=== PATIENT | male | born 1950 | race Caucasian/White ===

== ENCOUNTER → 2018-03-25 | Outpatient (CLI) | payer OTHER ==
[~2018-03-25] MED LIST: FINA5 PO; Zofran Odt4 MG SL
== END | disposition home or self-care (01) ==
LOC: PLD 07:46 → LAB SHORT 07:46
DX: D22.5 Melanocytic nevi of trunk (principal)
CPT/HCPCS: 88305

== ENCOUNTER → 2018-04-08 | Outpatient (CLI) | payer OTHER | END | disposition home or self-care (01) | LOC: PLD 11:29 → LAB SHORT 11:29 | DX: D22.5 Melanocytic nevi of trunk (principal) | CPT/HCPCS: 88305 ==

== ENCOUNTER → 2018-09-16 | Outpatient (CLI) | payer OTHER | END | disposition home or self-care (01) | LOC: LAB SHORT 13:21 → PLD 13:21 | DX: D48.5 Neoplasm of uncertain behavior of skin (principal) | CPT/HCPCS: 88304 ==

== ENCOUNTER 2018-12-21 09:18 | Day surgery (SDC) | payer OTHER ==
[~2018-12-21] VITALS: Ht 177.8 cm; Wt 94.5 kg
[~2018-12-21 09:18] MED LIST changes: +CALCIUM GUMMIE1 EACH PO; +CYAN500 PO; +KRILL OIL500 MG PO; +MULTI-DAY PLUS1 EAC1 PO; +TAMS.4ER PO; +VITAMIN D32000 UNIT PO
== END 2018-12-21 11:15 | disposition home or self-care (01) ==
LOC: ORSCSDS 09:18
PROVIDERS: Surgery
PROC: 0DBH8ZX Excision of Cecum, Via Natural or Artificial Opening Endoscopic, Diagnostic (ICD-10-PCS; principal; 2018-12-21 10:30)
PROC: 0DJ08ZZ Inspection of Upper Intestinal Tract, Via Natural or Artificial Opening Endoscopic (ICD-10-PCS; principal; 2018-12-21 10:30)
DX: D50.9 Iron deficiency anemia, unspecified (principal); D12.0 Benign neoplasm of cecum; Z86.010 Personal history of colon polyps; E78.5 Hyperlipidemia, unspecified; Z79.899 Other long term (current) drug therapy
CPT/HCPCS: 88305; J7120

== ENCOUNTER → 2019-04-06 | Outpatient (CLI) | payer OTHER | END | disposition home or self-care (01) | LOC: LAB SHORT 10:20 → PLD 10:20 | DX: D22.72 Melanocytic nevi of left lower limb, including hip (principal) | CPT/HCPCS: 88305 ==

== ENCOUNTER → 2020-03-08 | Outpatient (CLI) | payer OTHER | END | disposition home or self-care (01) | LOC: PLD 09:12 → LAB SHORT 09:12 | DX: D22.5 Melanocytic nevi of trunk (principal) | CPT/HCPCS: 88305 ==

== ENCOUNTER → 2021-04-10 | Outpatient (CLI) | payer OTHER | LOC: LAB 11:00 → LAB SHORT 11:00 | DX: L57.8 Other skin changes due to chronic exposure to nonionizing radiation (principal) | CPT/HCPCS: 88305 ==

== ENCOUNTER → 2021-10-15 | Outpatient (CLI) | payer OTHER | END | disposition home or self-care (01) | LOC: LAB SHORT 11:13 | DX: L82.1 Other seborrheic keratosis (principal); D48.5 Neoplasm of uncertain behavior of skin | CPT/HCPCS: 88305 ==

== ENCOUNTER 2023-10-28 08:08 | Day surgery (SDC) | payer OTHER ==
[~2023-10-28] VITALS: Ht 177.8 cm; Wt 96.2 kg
[2023-10-28] MEDS ORDERED: Zovirax Cream 5%2 GM (08:40)
[2023-10-28] MEDS ORDERED: KRILL OIL500 MG (08:41)
[2023-10-28] MEDS ORDERED: Vitamin B-12100 MCG (08:42)
[2023-10-28 10:05] VITALS: BP 110/68
== END 2023-10-28 10:06 | disposition home or self-care (01) ==
LOC: ORSCSDS 08:08
PROVIDERS: Surgery
PROC: 0DB98ZX Excision of Duodenum, Via Natural or Artificial Opening Endoscopic, Diagnostic (ICD-10-PCS; principal; 2023-10-28 09:15)
PROC: 0DBH8ZX Excision of Cecum, Via Natural or Artificial Opening Endoscopic, Diagnostic (ICD-10-PCS; principal; 2023-10-28 09:15)
PROC: 0DBN8ZX Excision of Sigmoid Colon, Via Natural or Artificial Opening Endoscopic, Diagnostic (ICD-10-PCS; principal; 2023-10-28 09:15)
PROC: 0DBK8ZX Excision of Ascending Colon, Via Natural or Artificial Opening Endoscopic, Diagnostic (ICD-10-PCS; principal; 2023-10-28 09:15)
PROC: 0DB68ZX Excision of Stomach, Via Natural or Artificial Opening Endoscopic, Diagnostic (ICD-10-PCS; principal; 2023-10-28 09:15)
DX: D50.9 Iron deficiency anemia, unspecified (principal); K29.80 Duodenitis without bleeding; K29.70 Gastritis, unspecified, without bleeding; D12.2 Benign neoplasm of ascending colon; D12.0 Benign neoplasm of cecum; K63.5 Polyp of colon; K64.9 Unspecified hemorrhoids; E78.5 Hyperlipidemia, unspecified; Z79.899 Other long term (current) drug therapy
CPT/HCPCS: 88305; 88341; 88342; 88360; J2704; J7120

== ENCOUNTER → 2023-12-23 | Outpatient (CLI) | payer OTHER ==
[~2023-12-23] MED LIST changes: +KRILL OIL500 MG; +Vitamin B-12100 MCG; +Zovirax Cream 5%2 GM
== END | disposition home or self-care (01) ==
LOC: LAB EV 08:42 → LAB SHORT 08:42
DX: C88.4 Extranodal marginal zone B-cell lymphoma of mucosa-associated lymphoid tissue [MALT-lymphoma] (principal); D47.2 Monoclonal gammopathy
CPT/HCPCS: 87338

== ENCOUNTER → 2024-03-16 | Outpatient (CLI) | payer OTHER ==
[~2024-03-16] MED LIST changes: +PROTANDIM; +ZINC15
== END ==
LOC: LAB 14:40 → LAB SHORT 14:40
DX: L82.1 Other seborrheic keratosis (principal)
CPT/HCPCS: 88305

== ENCOUNTER 2025-02-03 09:18 | Day surgery (SDC) | payer OTHER ==
[~2025-02-03] VITALS: Ht 177.8 cm; Wt 96.8 kg
[~2025-02-03 09:18] MED LIST changes: +Lactated Ringer's 1,000 ML IV ONE; +propofoL 50 ML IV ONE
[2025-02-03] MEDS ORDERED: Lactated Ringer's 1,000 ML IV ONE (10:44)
[2025-02-03 11:45] VITALS: BP 116/78
== END 2025-02-03 11:45 | disposition home or self-care (01) ==
LOC: ORSCSDS 09:18
PROVIDERS: Surgery
PROC: 0DJD8ZZ Inspection of Lower Intestinal Tract, Via Natural or Artificial Opening Endoscopic (ICD-10-PCS; principal; 2025-02-03 10:30)
DX: Z12.11 Encounter for screening for malignant neoplasm of colon (principal); Z86.0100 Personal history of colon polyps, unspecified; N18.9 Chronic kidney disease, unspecified; E78.5 Hyperlipidemia, unspecified; Z79.899 Other long term (current) drug therapy
CPT/HCPCS: J2704; J7120

== ENCOUNTER 2025-03-01 11:11 | Day surgery (SDC) | payer OTHER ==
[~2025-03-01] VITALS: Ht 177.8 cm; Wt 99.3 kg
[~2025-03-01 11:11] MED LIST changes: -propofoL 50 ML IV ONE
[2025-03-01] MEDS ORDERED: FentaNYL Citrate 50 MCG/ML 2 ML Injection ONE (11:19)
[2025-03-01] MEDS ORDERED: propofoL 20 ML IV ONE (11:19)
[2025-03-01] MEDS ORDERED: Sugammadex Sodium 200 MG/2ML SDV (100 MG/ML) ONE ×2 (11:20→13:52)
[2025-03-01] MEDS ORDERED: Rocuronium Bromide 10 MG/ML 5ML Injection IV ONE (11:21)
[2025-03-01] MEDS ORDERED: Dexamethasone Sod Phos 10 MG/ML 1ML VIAL ONE (11:21)
[2025-03-01] MEDS ORDERED: Ondansetron HCl 2 MG / ML 2ML Vial ONE (11:21)
[2025-03-01] MEDS ORDERED: Lactated Ringer's 1,000 ML IV ONE ×2 (12:10→14:01)
[2025-03-01] MEDS ORDERED: EPINEPhrine HCl 1 MG/ML 1ML Amp ONE (12:20)
[2025-03-01] MEDS ORDERED: Midazolam HCl 1MG / ML 2ML Vial ONE (12:43)
--- NOTE | 2025-03-01 12:43 | NUR ---
03/01/25 1243 Batsheva Hannon PT DELAYED GOING BACK DUE TO CONSENT NOT BEING OBTAINED UNTIL 0645.
[2025-03-01] MEDS ORDERED: Ketorolac Tromethamine 30mg Vial ONE (13:08)
[2025-03-01] MEDS ORDERED: ePHEDrine Sulfate 50 MG/ML 1ML Injection ONE (13:20)
[2025-03-01 14:22] VITALS: BP 143/79
== END 2025-03-01 15:11 | disposition home or self-care (01) ==
LOC: ORSCSDS 11:11
PROVIDERS: Otolaryngology
PROC: 0CB Mouth and Throat, Excision (ICD-10-PCS; principal; 2025-03-01 12:30)
PROC: 07B20ZX Excision of Left Neck Lymphatic, Open Approach, Diagnostic (ICD-10-PCS; principal; 2025-03-01 12:30)
DX: C83.01 Small cell B-cell lymphoma, lymph nodes of head, face, and neck (principal); R93.89 Abnormal findings on diagnostic imaging of other specified body structures; N40.0 Benign prostatic hyperplasia without lower urinary tract symptoms; Z79.899 Other long term (current) drug therapy; E66.9 Obesity, unspecified; Z68.31 Body mass index [BMI] 31.0-31.9, adult
CPT/HCPCS: 88184; 88185; 88305; 88341; 88342; J0171; J1100; J1885; J2250; J2405; J2704; J3010; J7120

== ENCOUNTER 2025-07-11 08:10 | Inpatient (IN) | payer OTHER ==
[~2025-07-11] VITALS: Ht 177.8 cm; Wt 94.4 kg
[2025-07-11] VITALS (23 sets, daily range): BP systolic 102–147; BP diastolic 56–103
[~2025-07-11 08:10] MED LIST changes: -KRILL OIL500 MG; -Lactated Ringer's 1,000 ML IV ONE
[2025-07-11] MEDS ORDERED: ASPIR 8181 M1 PO ×2 (08:55)
[2025-07-11 11:25] LABS: BASOPHILS ABSOLUTE AUTO 0.02 K/mm3 (0.00-0.23); BASOPHILS PERCENT AUTO 1 % (0-2); EOSINOPHILS ABSOLUTE AUTO 0.04 K/mm3 (0.00-0.68); EOSINOPHILS PERCENT AUTO 1 % (0-6); Hematocrit 42.1 % (37.0-53.0); Hemoglobin 14.6 g/dL (13.5-17.5); IMMATURE GRAN ABSOLUTE AUTO 0.03 K/mm3 (0.00-0.10); IMMATURE GRAN PERCENT AUTO 1 % (0-1); LYMPHOCYTES ABSOLUTE AUTO 1.29 K/mm3 (0.84-5.20); LYMPHOCYTES PERCENT AUTO 30 % (21-46); MONOCYTES ABSOLUTE AUTO 0.89 K/mm3 (0.16-1.47); MONOCYTES PERCENT AUTO 21 % (4-13); Mean Corpuscular HGB Conc 34.7 g/dL (31.5-36.5); Mean Corpuscular Volume 88 fL (80-100); NEUTROPHILS ABSOLUTE AUTO 1.98 K/mm3 (1.96-9.15); NEUTROPHILS PERCENT AUTO 47 % (41-73); NRBC ABSOLUTE 0.00 K/mm3 (0.00-0.02); NRBC Auto 0.0 /100 WBC (0.0-0.2); Platelet Count 222 K/mm3 (150-400); RDW Coefficient Variation 13.2 % (11.7-14.2); RDW Standard Deviation 42.3 fL (35.1-46.3)
[2025-07-11 11:31] LABS: Anti-Xa UFH, PHA Monitoring <0.10 IU/mL; Prothrombin Time Results 12.4 Sec (9.7-11.5)
[2025-07-11 11:44] LABS: Anion Gap 7.0 mmol/L (3-11); Blood Urea Nitrogen 9.0 mg/dL (8-24); CO2, Blood 23.0 mmol/L (21-32); Calcium, Blood 8.1 mg/dL (8.5-10.1); Chloride, Blood 110.0 mmol/L (98-108); Creatinine, Blood 1.3 mg/dL (0.60-1.20); Glucose, Blood 92.0 mg/dL (70-99); Potassium, Blood 4.3 mmol/L (3.5-5.5); Sodium, Blood 136.0 mmol/L (136-145)
[2025-07-11] MEDS ORDERED: Heparin Sodium 5000 Units/ML 1ML MDV IV ONE (11:45)
[2025-07-11] MEDS ORDERED: Heparin Sodium,Porcine/0.5 NS 500 ML IV SCH ×2 (11:45→16:25)
[2025-07-11] MEDS ORDERED: NS 100 ML IV ONE (13:10)
[2025-07-11] MEDS ORDERED: NS 250 ML IV ONE (13:10)
[2025-07-11] MEDS ORDERED: Heparin Sodium 1000 Units/ML 10ML MDV ONE ×3 (13:11→14:59)
[2025-07-11] MEDS ORDERED: NS 1,000 ML IV ONE ×3 (13:11→14:22)
[2025-07-11] MEDS ORDERED: Nitroglycerin 2 MG/20 ML BTL ONE (13:11)
[2025-07-11] MEDS ORDERED: Midazolam HCl 1MG / ML 2ML Vial ONE (13:38)
[2025-07-11] MEDS ORDERED: FentaNYL Citrate 50 MCG/ML 2 ML Injection ONE (13:38)
[2025-07-11] MEDS ORDERED: NS 500 ML IV ONE (14:29)
[2025-07-11] MEDS ORDERED: Alteplase 1 MG/ML 10 MG in NS 100 ML IV SCH (15:20)
[2025-07-11] MEDS ORDERED: Midazolam HCl 1MG / ML 2ML Vial IV PRN (16:15)
[2025-07-11] MEDS ORDERED: Ondansetron HCl 2 MG / ML 2ML Vial IV PRN (16:15)
[2025-07-11] MEDS ORDERED: Prochlorperazine Edisylate 10 mg Vial IV PRN (16:20)
--- NOTE | 2025-07-11 16:26 | NUR ---
PATIENT TO RECOVERY ROOM AT 1615. PATIENT AWAKE AND ALERT AND DENIES C/O PAIN. SHEATH REMAINS TO RIGHT GROIN WITH LYSIS CATHETER TO LEFT POP/TPT AREA INFUSING TPA AT 2MG/HR. HEPARIN GTT TO SIDE PORT OF SHEATH INFUSING 6CC/HR. RIGHT GROIN SITE STABLE/SOFT W/O HEMATOMA, BLEEDING, SWELLING, OR TENDERNESS. VSS. PATIENT AT BEDSIDE. DR SIMONS AT BEDSIDE TO UPDATE PATIENT AND PATIENT'S . DOPPLER PULSES NOW PRESENT TO LEFT DP. DOPPLER TO LEFT PT. 1+ PULSES TO RIGHT DP/PT.
--- NOTE | 2025-07-11 16:52 | NUR ---
RIGHT GROIN REMAINS STABLE AND UNCHANGED. PATIENT DENIES COMPLAINTS. PULSES UNCHANGED. AWAITING ICU BED.
--- NOTE | 2025-07-11 17:24 | NUR ---
PATIENT TAKEN TO ICU 16 IN STABLE CONDITION. REPORT GIVEN TO PRIMARY RN. SITE REVIEWED; WNL.
--- NOTE | 2025-07-11 18:22 | NUR ---
ASSUMPTION OF CARE PT ARRIVAL TO ROOM W/ [facility] RN AT 1720. PT A/OX4 FOR BEDSIDE REPORT AND WAS ABLE TO PARTICIPATE IN CARE. PT ABLE TO MOVE ALL EXTREMITIES AND FOLLOW BEDREST ORDERS SPECIFIED BY SURGEON. NSR W/ FREQUENT PVC'S ON MONITOR, PT DENIES ANY PAIN/NUMBNESS/TINGLING. CAP REFILL<3 SEC, NO NOTED EDEMA. PULSES ON LLE FOUND W/ DOPPLER, PALPATION TO ALL OTHER EXTREMITIES. LUNG SOUNDS CLEAR AND SATURATING >95% ON RA. BOWEL TONES HYPOACTIVE, ABD SOFT/NONTENDER. PT REPORTS HX OF URINARY RETENTION, DOES NOT FEEL ANYURGENCY/BLADDER FULLNESS AT THIS TIME. SKIN INTACT AND W/O BREAKDOWN. R GROIN SITE W/ SHEATH PRESENT, SOFT AND W/O BRUSING/BLEEDING. TRANSPARENT DRESSING CHANGED. ACCESS: R GROIN SHEATH, BILATERAL HAND PIV GTTS: TPA 2MG/HR, HEPARIN 6ML/HR
--- NOTE | 2025-07-11 18:31 | NUR ---
PULSE/SITE CHECK LLE PULSES VERIFIED W/ DOPPLER AND GROIN SITE FREE FROM BLEEDING/HEMATOMA AT 1735/1750/1805/1820 HOURLY CHECKS HEREAFTER
--- NOTE | 2025-07-11 20:58 | NUR ---
ASSUME CARE: PT A/Ox4 AND ABLE TO MAKE NEEDS KNOWN. VSS, MONITOR SHOWS SINUS RYTHM W/ OCCASIONAL BIGEMINAL PVCs. PT DENIES CP OR PRESSURE. FEMORAL SHEATH IN PLACE TO RIGHT GROIN, INFUSING HEPARIN AND ALTEPLASE. SITE HAS MINIMAL OOZING, SOFT, NO HEMATOMA NOTED. WILL CONTINUE HOURLY REASSESSMENTS. BLE PULSES STRONG, FELT AND HEARD W/DOPPLER. PT CONTINUOUSLY ASKS IF HE CAN STAND UP AND STRETCH, PT INSTRUCTED THAT HE NEEDS TO REMAIN IN BED AND KEEP HIS LOWER EXTREMETIES STRAIGHT. PT AGREES W/ PLAN OF CARE. PT EXPRESSES THAT IS IS SOMETIMES DIFFICULT TO URINATE UNLESS HE IS STANDING UP DUE TO HIS BPH, BUT WAS ABLE TO USE THE URINAL W/ GOOD OUTPUT. CALL LIGHT IN REACH. WILL UPDATE NEEDED.
[2025-07-11] MEDS ORDERED: OxyCODONE 5 mg/Acetamin 325 mg TABLET PO PRN (21:55)
--- NOTE | 2025-07-11 22:25 | NUR ---
UPDATE: PT COMPLAINS OF 4/10 PAIN IN CALF, APPEARS ANXIOUS ABOUT STAYING FLAT IN BED AND NOT BEING ABLE TO GET UP, PT REPORTS THAT HE NORMALLY DRINKS 3 BEERS A NIGHT TO GO TO SLEEP AND GETS UP SEVERAL TIMES A NIGHT TO URINATE. HOSPITALIST NOTIFIED OF PT PAIN/ANXIETY, NEW ORDERS GIVEN. LLE WARM, PINK, PULSES FELT TO BLE. RIGHT GROIN SITE SOFT, NO HEMATOMA PRESENT.
[2025-07-12] VITALS (26 sets, daily range): BP systolic 98–140; BP diastolic 52–94
--- NOTE | 2025-07-12 05:52 | NUR ---
SHIFT SUMMARY: PT A/Ox4 AND PLEASANT W/CARE. VSS. MONITOR SHOWS SINUS RYTHM W/PVCs. RIGHT GROIN SHEATH SOFT, NO SIGNS OF HEMATOMA, MINIMAL CONTINUOUS OOZING NOTED, HEPARIN AND ALTEPLASE INFUSING PER ORDERS. PT COMPLAINS OF SOME PAIN TO LLE, MEDICATED PER EMAR. PT STATES PAIN MEDICINE IS WORKING WELL FOR HIM. PT ABLE TO USE URINAL W/ASSISTANCE, GOOD OUTPUT. CALL LIGHT IN REACH. WILL REPORT TO ONCOMING RN.
[2025-07-12] MEDS ORDERED: NS 1,000 ML IV SCH (08:10)
[2025-07-12] MEDS ORDERED: NS 250 ML IV ONE (11:39)
[2025-07-12] MEDS ORDERED: NS 100 ML IV ONE (11:39)
[2025-07-12] MEDS ORDERED: NS 1,000 ML IV ONE ×4 (11:40→14:49)
[2025-07-12] MEDS ORDERED: Heparin Sodium 1000 Units/ML 10ML MDV ONE ×3 (11:40→15:09)
[2025-07-12] MEDS ORDERED: Phenylephrine HCl 100 MCG/ML-NS 10MLSYR (1MG/10ML) ONE ×2 (12:07→14:05)
[2025-07-12] MEDS ORDERED: Midazolam HCl 1MG / ML 2ML Vial ONE ×2 (12:40→14:02)
[2025-07-12] MEDS ORDERED: FentaNYL Citrate 50 MCG/ML 2 ML Injection ONE ×3 (12:41→15:33)
[2025-07-12] MEDS ORDERED: NS 500 ML IV ONE ×3 (13:11→14:33)
[2025-07-12] MEDS ORDERED: Protamine Sulfate 50 MG Amp ONE (13:58)
--- NOTE | 2025-07-12 18:46 | NUR ---
Summary. Pt taken to [facility] at approximately 1215 this afternoon. Pt alert and oriented, supine for TPA infusion through R/fem sheath all morning. Pt experienced some bleeding during lab[facility] aquatic life intervention, L/groin access obtained during procedure as well, 1 unit PRBCs infused post procedure, see [facility] notes/intervention report. Pt back from [facility] life at 1642, to remain supine for 4 hours, R/groin access site has femstop in place in case of further bleeding. L/groin site intact, no bleeding, swelling or ecchymosis noted. VS stable this shift.
[2025-07-12] MEDS ORDERED: Heparin Sodium,Porcine/0.5 NS 500 ML IV SCH (19:45)
[2025-07-12 20:11] LABS: BASOPHILS ABSOLUTE AUTO 0.01 K/mm3 (0.00-0.23); BASOPHILS PERCENT AUTO 0 % (0-2); EOSINOPHILS ABSOLUTE AUTO 0.01 K/mm3 (0.00-0.68); EOSINOPHILS PERCENT AUTO 0 % (0-6); Hematocrit 35.8 % (37.0-53.0); Hemoglobin 12.3 g/dL (13.5-17.5); IMMATURE GRAN ABSOLUTE AUTO 0.11 K/mm3 (0.00-0.10); IMMATURE GRAN PERCENT AUTO 1 % (0-1); LYMPHOCYTES ABSOLUTE AUTO 0.63 K/mm3 (0.84-5.20); LYMPHOCYTES PERCENT AUTO 7 % (21-46); MONOCYTES ABSOLUTE AUTO 1.20 K/mm3 (0.16-1.47); MONOCYTES PERCENT AUTO 13 % (4-13); Mean Corpuscular HGB Conc 34.4 g/dL (31.5-36.5); Mean Corpuscular Volume 90 fL (80-100); NEUTROPHILS ABSOLUTE AUTO 7.25 K/mm3 (1.96-9.15); NEUTROPHILS PERCENT AUTO 79 % (41-73); NRBC ABSOLUTE 0.00 K/mm3 (0.00-0.02); NRBC Auto 0.0 /100 WBC (0.0-0.2); Platelet Count 178 K/mm3 (150-400); RDW Coefficient Variation 13.5 % (11.7-14.2); RDW Standard Deviation 44.8 fL (35.1-46.3)
--- NOTE | 2025-07-12 21:37 | NUR ---
ASSUMED CARE AT 1900 PATIENT IS ALERT AND ORIENTED X4. SP02 >94% ON RA, DENIES SOB. HR SR 70s-80s, WITH PVCs. BP STABLE. DENIES CP/PRESSURE. FEMSTOP REMOVED FROM RIGHT GROIN AT APPROX 2000, MODERATED HEMATOMA/BRUSING BUT NO CURRENT BLEEDING NOTED. DRESSING ON BILATERAL GROIN SITES C/D/I. PULSES TO BLE INTACT. MEDICATED FOR GROIN PAIN AND CHRONIC BACK PAIN PER EMAR. CALL LIGHT IN REACH.
[2025-07-13] VITALS (11 sets, daily range): BP systolic 90–116; BP diastolic 59–69
[2025-07-13 03:10] LABS: Anion Gap 8.0 mmol/L (3-11); Blood Urea Nitrogen 14.0 mg/dL (8-24); CO2, Blood 25.0 mmol/L (21-32); Calcium, Blood 7.3 mg/dL (8.5-10.1); Chloride, Blood 106.0 mmol/L (98-108); Creatinine, Blood 1.34 mg/dL (0.60-1.20); Glucose, Blood 115.0 mg/dL (70-99); Potassium, Blood 4.2 mmol/L (3.5-5.5); Sodium, Blood 135.0 mmol/L (136-145)
[2025-07-13 03:57] LABS: Hematocrit 34.8 % (37.0-53.0); Hemoglobin 11.5 g/dL (13.5-17.5); Mean Corpuscular HGB Conc 33.0 g/dL (31.5-36.5); Mean Corpuscular Volume 91 fL (80-100); NRBC ABSOLUTE 0.00 K/mm3 (0.00-0.02); NRBC Auto 0.0 /100 WBC (0.0-0.2); Platelet Count 177 K/mm3 (150-400); RDW Coefficient Variation 13.6 % (11.7-14.2); RDW Standard Deviation 45.1 fL (35.1-46.3)
--- NOTE | 2025-07-13 06:25 | NUR ---
SHIFT SUMMARY PATIENT IS ALERT AND ORIENTED X4. SP02 97% ON RA, DENIES SOB. HR SR WITH PVCs 60s-70s. BP STABLE. DENIES CP/PRESSURE. BILATERAL GROIN SITES UNCHANGED, DRESSING C/D/I. PULSES TO BILATERAL FEET, SENSATION INTACT. PATIENT ABLE TO POSITION SELF IN BED. HEPARIN DRIP INFUSING PER ORDERS.
[2025-07-13] MEDS ORDERED: Dose Adjust by Pharmacy XX STA (10:42)
[2025-07-13] MEDS ORDERED: ACYC400 PO ×2 (12:19)
[2025-07-13] MEDS ORDERED: OMEP20ER PO ×2 (12:20)
[2025-07-13] MEDS ORDERED: [UNRECOGNIZED DRUG - OTHER] PO ×2 (12:21)
[2025-07-13] MEDS ORDERED: MELA3 PO ×2 (15:18)
[2025-07-13] MEDS ORDERED: ELIQUIS2.5 MG PO ×2 (15:18)
[2025-07-13] MEDS ORDERED: ELIQUIS5 M2 PO ×2 (15:29)
--- NOTE | 2025-07-13 16:20 | NUR ---
DISCHARGE NOTE... PATIENT A&OX4. IVS REMOVED. AT BEDSIDE. MEDICATIONS FAXED TO [facility]. IN DEPTH EDUCATION ON ANTICOAGULANT GIVEN TO PATIENT AND . PATIENT AND EDUCATED ON FEMORAL CATH SITE CARE AT HOME. PATIENT D/C VIA WHEELCHAIR TO PRIVATE VEHICLE. ALL BELONGINGS SENT HOME WITH PATIENT.
== END 2025-07-13 16:30 | disposition home or self-care (01) | DRG 271 ==
LOC: ER 08:10 → ICUE 08:11 → ERHOLD 08:11 → ER 10:13 → ERHOLD 10:13 → ICUE 17:23
PROVIDERS: Internal Medicine; Student in an Organized Health Care Education/Training Program; ADMIT Student in an Organized Health Care Education/Training Program
PROC: 3E03317 Introduction of Other Thrombolytic into Peripheral Vein, Percutaneous Approach (ICD-10-PCS; principal; 2025-07-11)
PROC: B41J1ZZ Fluoroscopy of Other Lower Arteries using Low Osmolar Contrast (ICD-10-PCS; 2025-07-11)
PROC: B44LZZZ Ultrasonography of Femoral Artery (ICD-10-PCS; 2025-07-11)
PROC: X2CT3T7 Extirpation of Matter from Left Lower Extremity Artery using Computer-aided Mechanical Aspiration, Percutaneous Approach, New Technology Group 7 (ICD-10-PCS; 2025-07-12)
DX: I70.222 Atherosclerosis of native arteries of extremities with rest pain, left leg (principal); C85.9A Non-Hodgkin lymphoma, unspecified, in remission; I74.3 Embolism and thrombosis of arteries of the lower extremities; N40.0 Benign prostatic hyperplasia without lower urinary tract symptoms; N18.2 Chronic kidney disease, stage 2 (mild); D50.9 Iron deficiency anemia, unspecified; D63.1 Anemia in chronic kidney disease; Z87.81 Personal history of (healed) traumatic fracture; Z79.82 Long term (current) use of aspirin; Z79.899 Other long term (current) drug therapy; Z90.89 Acquired absence of other organs; Z98.890 Other specified postprocedural states
CPT/HCPCS: 36415; 36430; 76937; 80048; 85018; 85025; 85027; 85384; 85520; 85610; 85730; 86850; 86900; 86901; 86923; 93306; 96374; 96375; 96376; 99152; 99153; 99284-25; A9270; C1725; C1753; C1757; C1760; C1769; C1884; C1887; C1894; G0378; J1644; J2250; J2371; J2720; J2997; J3010; J7030; J7040; J7050; P9016; Q9967

== ENCOUNTER 2025-07-19 08:34 | Emergency (ER) | payer OTHER ==
[~2025-07-19] VITALS: Ht 177.8 cm; Wt 98.0 kg
[~2025-07-19 08:34] MED LIST changes: +ACYC400 PO; +ASPIR 8181 M1 PO; +ELIQUIS2.5 MG PO; +ELIQUIS5 M2 PO; +MELA3 PO; +OMEP20ER PO; +[UNRECOGNIZED DRUG - OTHER] PO
[2025-07-19 09:34] VITALS: BP 130/83
[2025-07-19 09:55] LABS: BASOPHILS ABSOLUTE AUTO 0.00 K/mm3 (0.00-0.23); BASOPHILS PERCENT AUTO 0 % (0-2); EOSINOPHILS ABSOLUTE AUTO 0.01 K/mm3 (0.00-0.68); EOSINOPHILS PERCENT AUTO 0 % (0-6); Hematocrit 36.0 % (37.0-53.0); Hemoglobin 12.0 g/dL (13.5-17.5); IMMATURE GRAN ABSOLUTE AUTO 0.05 K/mm3 (0.00-0.10); IMMATURE GRAN PERCENT AUTO 1 % (0-1); LYMPHOCYTES ABSOLUTE AUTO 1.51 K/mm3 (0.84-5.20); LYMPHOCYTES PERCENT AUTO 31 % (21-46); MONOCYTES ABSOLUTE AUTO 0.95 K/mm3 (0.16-1.47); MONOCYTES PERCENT AUTO 20 % (4-13); Mean Corpuscular HGB Conc 33.3 g/dL (31.5-36.5); Mean Corpuscular Volume 91 fL (80-100); NEUTROPHILS ABSOLUTE AUTO 2.36 K/mm3 (1.96-9.15); NEUTROPHILS PERCENT AUTO 48 % (41-73); NRBC ABSOLUTE 0.00 K/mm3 (0.00-0.02); NRBC Auto 0.0 /100 WBC (0.0-0.2); Platelet Count 262 K/mm3 (150-400); RDW Coefficient Variation 13.4 % (11.7-14.2); RDW Standard Deviation 44.9 fL (35.1-46.3)
[2025-07-19 10:25] LABS: Alanine Aminotransfer (ALT/SGP 22.0 U/L (12-78); Albumin, Blood 3.5 g/dL (3.4-5.0); Albumin/Globulin Ratio 1.0 (0.8-1.8); Anion Gap 7.0 mmol/L (3-11); Aspartate Aminotrans (AST/SGOT 16.0 U/L (12-37); Bilirubin, Total 0.7 mg/dL (0.1-1.0); Blood Urea Nitrogen 13.0 mg/dL (8-24); CO2, Blood 29.0 mmol/L (21-32); Calcium, Blood 8.6 mg/dL (8.5-10.1); Chloride, Blood 108.0 mmol/L (98-108); Creatinine, Blood 1.39 mg/dL (0.60-1.20); Globulin, Blood 3.6 g/dL (2.2-4.0); Glucose, Blood 101.0 mg/dL (70-99); Potassium, Blood 4.0 mmol/L (3.5-5.5); Sodium, Blood 140.0 mmol/L (136-145); Total Protein, Blood 7.1 g/dL (6.4-8.2)
== END 2025-07-19 14:44 | disposition home or self-care (01) ==
LOC: ER 08:34
PROVIDERS: Physician Assistant
DX: M79.662 Pain in left lower leg (principal); Z98.890 Other specified postprocedural states; Z79.01 Long term (current) use of anticoagulants; Z79.899 Other long term (current) drug therapy
CPT/HCPCS: 80053; 85025; 93926; 93971; 99284-25

== ENCOUNTER 2025-08-10 08:29 | Inpatient (IN) | payer OTHER ==
[~2025-08-10] VITALS: Ht 177.8 cm; Wt 98.1 kg
[2025-08-10 09:26] LABS: BASOPHILS ABSOLUTE AUTO 0.02 K/mm3 (0.00-0.23); BASOPHILS PERCENT AUTO 1 % (0-2); EOSINOPHILS ABSOLUTE AUTO 0.02 K/mm3 (0.00-0.68); EOSINOPHILS PERCENT AUTO 1 % (0-6); Hematocrit 38.1 % (37.0-53.0); Hemoglobin 12.5 g/dL (13.5-17.5); IMMATURE GRAN ABSOLUTE AUTO 0.01 K/mm3 (0.00-0.10); IMMATURE GRAN PERCENT AUTO 0 % (0-1); LYMPHOCYTES ABSOLUTE AUTO 1.31 K/mm3 (0.84-5.20); LYMPHOCYTES PERCENT AUTO 32 % (21-46); MONOCYTES ABSOLUTE AUTO 1.06 K/mm3 (0.16-1.47); MONOCYTES PERCENT AUTO 26 % (4-13); Mean Corpuscular HGB Conc 32.8 g/dL (31.5-36.5); Mean Corpuscular Volume 90 fL (80-100); NEUTROPHILS ABSOLUTE AUTO 1.70 K/mm3 (1.96-9.15); NEUTROPHILS PERCENT AUTO 41 % (41-73); NRBC ABSOLUTE 0.00 K/mm3 (0.00-0.02); NRBC Auto 0.0 /100 WBC (0.0-0.2); Platelet Count 203 K/mm3 (150-400); RDW Coefficient Variation 13.9 % (11.7-14.2); RDW Standard Deviation 45.5 fL (35.1-46.3)
[2025-08-10 09:46] LABS: Alanine Aminotransfer (ALT/SGP 17.0 U/L (12-78); Albumin, Blood 3.5 g/dL (3.4-5.0); Albumin/Globulin Ratio 1.1 (0.8-1.8); Anion Gap 9.0 mmol/L (3-11); Aspartate Aminotrans (AST/SGOT 14.0 U/L (12-37); Bilirubin, Total 0.6 mg/dL (0.1-1.0); Blood Urea Nitrogen 10.0 mg/dL (8-24); CO2, Blood 26.0 mmol/L (21-32); Calcium, Blood 8.6 mg/dL (8.5-10.1); Chloride, Blood 107.0 mmol/L (98-108); Creatinine, Blood 1.34 mg/dL (0.60-1.20); Globulin, Blood 3.1 g/dL (2.2-4.0); Glucose, Blood 105.0 mg/dL (70-99); Potassium, Blood 4.0 mmol/L (3.5-5.5); Sodium, Blood 138.0 mmol/L (136-145); Total Protein, Blood 6.6 g/dL (6.4-8.2)
[2025-08-10] MEDS ORDERED: FLU VACC TS2025(65UP)/MF59C/PF 45 MCG/0.5 ML SYRINGE IM SCH (11:35)
[2025-08-10] MEDS ORDERED: Mag Sulfate 1 GM/D5% 100ML 100 ML IV ONE (12:10)
[2025-08-10 13:24] LABS: Magnesium, Blood 2.3 mg/dL (1.6-2.4); Thyroid Stimulating Hormone 1.89 uIU/mL (0.360-4.800)
[2025-08-10 13:25] LABS: Phosphorus, Blood 3.9 mg/dL (2.5-4.9)
[2025-08-10 15:00] VITALS: BP 125/60
[2025-08-10] MEDS ORDERED: [UNRECOGNIZED DRUG - OTHER] (15:17)
[2025-08-10] MEDS ORDERED: [UNRECOGNIZED DRUG - OTHER] PO (15:17)
[2025-08-10 18:05] LABS: Prothrombin Time Results 12.6 Sec (9.7-11.5)
--- NOTE | 2025-08-10 18:17 | NUR ---
ARRIVAL TO UNIT REPORT RECEIVED FROM ER NURSE AT 1430. PT ARRIVED TO PCU AT 1500 VIA GURNEY AND ON RA. PT ABLE TO TRANSFER FROM [place] TO BED ON HIS OWN, TOLERATED WELL. PT ORIENTED TO ROOM AND CALL LIGHT. PT A/OX4. LUNG SOUNDS CLEAR T/O. NO REPORT OF HEST PAIN/PRESSURE AT TIME OF ARRIVAL. PT DENIES ARM NUMBESS AT THIS TIME. PT REPORTED NUMBNESS OF HIS LEFT ARM "ONLY WHEN I EXERCISE."
[2025-08-10 18:49] LABS: Anion Gap 5.0 mmol/L (3-11); Blood Urea Nitrogen 10.0 mg/dL (8-24); CO2, Blood 28.0 mmol/L (21-32); Calcium, Blood 8.7 mg/dL (8.5-10.1); Chloride, Blood 108.0 mmol/L (98-108); Creatinine, Blood 1.3 mg/dL (0.60-1.20); Glucose, Blood 116.0 mg/dL (70-99); Magnesium, Blood 2.6 mg/dL (1.6-2.4); Potassium, Blood 4.3 mmol/L (3.5-5.5); Sodium, Blood 137.0 mmol/L (136-145)
[2025-08-10] MEDS ORDERED: Dose Adjust by Pharmacy XX STA (19:27)
[2025-08-10] MEDS ORDERED: Heparin Sodium 5000 Units/ML 1ML MDV IV ONE (19:30)
[2025-08-10 19:38] VITALS: BP 144/64
[2025-08-10] MEDS ORDERED: Heparin Sodium,Porcine/0.5 NS 500 ML IV SCH (20:00)
[2025-08-10 23:38] VITALS: BP 114/73
[2025-08-11 02:15] LABS: BASOPHILS ABSOLUTE AUTO 0.02 K/mm3 (0.00-0.23); BASOPHILS PERCENT AUTO 1 % (0-2); EOSINOPHILS ABSOLUTE AUTO 0.01 K/mm3 (0.00-0.68); EOSINOPHILS PERCENT AUTO 0 % (0-6); Hematocrit 36.7 % (37.0-53.0); Hemoglobin 12.0 g/dL (13.5-17.5); IMMATURE GRAN ABSOLUTE AUTO 0.01 K/mm3 (0.00-0.10); IMMATURE GRAN PERCENT AUTO 0 % (0-1); LYMPHOCYTES ABSOLUTE AUTO 1.27 K/mm3 (0.84-5.20); LYMPHOCYTES PERCENT AUTO 29 % (21-46); MONOCYTES ABSOLUTE AUTO 0.87 K/mm3 (0.16-1.47); MONOCYTES PERCENT AUTO 20 % (4-13); Mean Corpuscular HGB Conc 32.7 g/dL (31.5-36.5); Mean Corpuscular Volume 90 fL (80-100); NEUTROPHILS ABSOLUTE AUTO 2.18 K/mm3 (1.96-9.15); NEUTROPHILS PERCENT AUTO 50 % (41-73); NRBC ABSOLUTE 0.00 K/mm3 (0.00-0.02); NRBC Auto 0.0 /100 WBC (0.0-0.2); Platelet Count 182 K/mm3 (150-400); RDW Coefficient Variation 13.9 % (11.7-14.2); RDW Standard Deviation 45.7 fL (35.1-46.3)
[2025-08-11 02:27] LABS: Alanine Aminotransfer (ALT/SGP 14.0 U/L (12-78); Albumin, Blood 3.1 g/dL (3.4-5.0); Albumin/Globulin Ratio 1.0 (0.8-1.8); Anion Gap 9.0 mmol/L (3-11); Aspartate Aminotrans (AST/SGOT 12.0 U/L (12-37); Bilirubin, Total 0.8 mg/dL (0.1-1.0); Blood Urea Nitrogen 12.0 mg/dL (8-24); CO2, Blood 25.0 mmol/L (21-32); Calcium, Blood 7.8 mg/dL (8.5-10.1); Chloride, Blood 109.0 mmol/L (98-108); Creatinine, Blood 1.35 mg/dL (0.60-1.20); Globulin, Blood 3.1 g/dL (2.2-4.0); Glucose, Blood 106.0 mg/dL (70-99); Potassium, Blood 3.8 mmol/L (3.5-5.5); Sodium, Blood 139.0 mmol/L (136-145); Total Protein, Blood 6.2 g/dL (6.4-8.2)
[2025-08-11] MEDS ORDERED: Dose Adjust by Pharmacy XX STA ×2 (02:57→10:34)
[2025-08-11 04:06] VITALS: BP 102/61
--- NOTE | 2025-08-11 05:01 | NUR ---
SHIFT SUMMARY A/Ox4 AND COOPERATIVE WITH CARE. ABLE TO MAKE HIS NEEDS KNOWN. NO ACUTE EVENTS OVERNIGHT. CARDIAC, REMAINS IN SR WITH PVC'S WITH NO REPORTS OF CP OR PRESSURE. SBP REMAINS STABLE WITH INTERMITTENT LEFT ARM TINGLING WITH EXERTION. RESPIRATORY, MAINTAINS SPO2 >92% ON RA WITH NO REPORTS OF SOB OR DYSPNEA. GI/, ABLE TO AMBULATE TO BATHROOM WITH SBA FOR LINE MANAGEMENT. DENIES ANY N/V/D OR ABD PAIN. HEP. gtt IS BEING MANAGED VIA PHARMACY AND INFUSING ORDERED PER EMAR. NO NEW ORDERS AT THIS TIME, WILL GIVE REPORT TO ONCOMING RN. GIBRAN BASURTO OF THIS NOTE.
[2025-08-11 07:18] VITALS: BP 126/77
[2025-08-11] MEDS ORDERED: Heparin Sodium 5000 Units/ML 1ML MDV IV ONE (10:35)
[2025-08-11 12:01] VITALS: BP 123/74
--- NOTE | 2025-08-11 12:35 | NUR ---
1100, SPOKE WITH MD TO NOTIFY OF RESULTS OF STRESS TEST.
[2025-08-11 15:42] VITALS: BP 128/76
--- NOTE | 2025-08-11 18:54 | NUR ---
SHIFT SUMMARY PT A&O X 4, COOPERATIVE WITH CARE. PT SINUS RADHA WITH PVCs 50-60s. ALL OTHER VSS. PT DENIES CHEST PAIN, PRESSURE, OR DIZZINESS. STRESS TEST PERFORMED THIS MORNING WAS POSITIVE, ANGIOPLASTY SCHEDULED FOR THE MORNING, NPO AT MIDNIGHT. PT SBA TO BATHROOM, USES CALL LIGHT APPROPRIATELY. FAMILY AT BEDSIDE AT 1700, PATIENT AND FAMILY NOTIFIED OF CARE PLAN.
[2025-08-11 19:24] VITALS: BP 126/75
--- NOTE | 2025-08-11 19:40 | NUR ---
PM NOTE ASSUMED CARE OF PATIENT AT APPROX 1900. PT RESTING IN BED, MOVES IND IND, SBA IN ROOM. ALERT, ORIENTED X4; CALM AND COOPERATIVE WITH CARE. 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 PT DENIES PAIN, CHEST PAIN/PRESSURE, SOB, NAUSEA, DIZZINESS AND NUMB/TINGLING. TELE SINUS 60'S, BP STABLE. SPO2 >90% ON RA, BREATHING EVEN AND UNLABORED. ABD SOFT, NONTNENDER, +BT NOTED T/O. NO EDEMA NOTED, PT REPORTS NO BM SINCE ADMISSION, PROVIDED PRUNE JUICE PER PT REQUEST. OTHER VSS. PATEINT REQUESTING THE "SLEEPING PILL" HE TAKEN LAST NIGHT, NOTIFIED DR CORREA, NEW ORDERS ENTERED. PLANS FOR NPO AT MIDNIGHT FOR ANGIO TOMORROW. CALL LIGHT WITHIN REACH.
[2025-08-11 23:46] VITALS: BP 104/59
[2025-08-12] VITALS (16 sets, daily range): BP systolic 92–129; BP diastolic 52–102
[2025-08-12] MEDS ORDERED: Dose Adjust by Pharmacy XX STA ×2 (02:10→09:28)
[2025-08-12 06:20] LABS: BASOPHILS ABSOLUTE AUTO 0.01 K/mm3 (0.00-0.23); BASOPHILS PERCENT AUTO 0 % (0-2); EOSINOPHILS ABSOLUTE AUTO 0.03 K/mm3 (0.00-0.68); EOSINOPHILS PERCENT AUTO 1 % (0-6); Hematocrit 37.1 % (37.0-53.0); Hemoglobin 12.1 g/dL (13.5-17.5); IMMATURE GRAN ABSOLUTE AUTO 0.02 K/mm3 (0.00-0.10); IMMATURE GRAN PERCENT AUTO 1 % (0-1); LYMPHOCYTES ABSOLUTE AUTO 1.10 K/mm3 (0.84-5.20); LYMPHOCYTES PERCENT AUTO 31 % (21-46); MONOCYTES ABSOLUTE AUTO 0.94 K/mm3 (0.16-1.47); MONOCYTES PERCENT AUTO 27 % (4-13); Mean Corpuscular HGB Conc 32.6 g/dL (31.5-36.5); Mean Corpuscular Volume 91 fL (80-100); NEUTROPHILS ABSOLUTE AUTO 1.45 K/mm3 (1.96-9.15); NEUTROPHILS PERCENT AUTO 41 % (41-73); NRBC ABSOLUTE 0.00 K/mm3 (0.00-0.02); NRBC Auto 0.0 /100 WBC (0.0-0.2); Platelet Count 162 K/mm3 (150-400); RDW Coefficient Variation 13.6 % (11.7-14.2); RDW Standard Deviation 45.5 fL (35.1-46.3)
[2025-08-12 06:43] LABS: Alanine Aminotransfer (ALT/SGP 29.0 U/L (12-78); Albumin, Blood 3.1 g/dL (3.4-5.0); Albumin/Globulin Ratio 1.0 (0.8-1.8); Anion Gap 7.0 mmol/L (3-11); Aspartate Aminotrans (AST/SGOT 24.0 U/L (12-37); Bilirubin, Total 0.7 mg/dL (0.1-1.0); Blood Urea Nitrogen 10.0 mg/dL (8-24); CHOL/HDL RATIO 2.1; CO2, Blood 28.0 mmol/L (21-32); Calcium, Blood 7.9 mg/dL (8.5-10.1); Chloride, Blood 107.0 mmol/L (98-108); Cholesterol 90 mg/dL (50-200); Creatinine, Blood 1.3 mg/dL (0.60-1.20); Globulin, Blood 3.0 g/dL (2.2-4.0); Glucose, Blood 97.0 mg/dL (70-99); HDL Cholesterol 42 mg/dL (>39); LDL/HDL RATIO 0.8; Low Density Lipoprotein Chol 32 mg/dL (0-110); Potassium, Blood 4.2 mmol/L (3.5-5.5); Sodium, Blood 138.0 mmol/L (136-145); Total Protein, Blood 6.1 g/dL (6.4-8.2); Triglycerides 81 mg/dL (30-160); Very Low Density Lipoprot Chol 16 mg/dL (6-32)
--- NOTE | 2025-08-12 06:43 | NUR ---
SHIFT SUMMARY HR TOUCHING UPPER 40'S, MAINTAINING 50'S FOR MAJORITY OF SHIFT. OTHER VSS. OTHER VSS. CALL LIGHT WITHIN REACH.
[2025-08-12] MEDS ORDERED: Verapamil HCL 2.5 MG/ML 2ML Injection ONE (11:27)
[2025-08-12] MEDS ORDERED: NS 1,000 ML IV ONE ×2 (11:27→11:29)
[2025-08-12] MEDS ORDERED: NS 250 ML IV ONE (11:27)
[2025-08-12] MEDS ORDERED: Nitroglycerin 2 MG/20 ML BTL ONE (11:27)
[2025-08-12] MEDS ORDERED: Heparin Sodium 1000 Units/ML 10ML MDV ONE (11:27)
[2025-08-12] MEDS ORDERED: FentaNYL Citrate 50 MCG/ML 2 ML Injection ONE ×2 (11:29→12:40)
[2025-08-12] MEDS ORDERED: Midazolam HCl 1MG / ML 2ML Vial ONE ×2 (11:29→12:40)
--- NOTE | 2025-08-12 11:39 | NUR ---
PT DOWN TO PERSONALIZED LIVING MANAGER NURSE AT 1138 VIA HOSPITAL BED AND ON RA. HEP GTT STOPPED AT THIS TIME AND PHARMACY NOTIFIED. FAMILY PRESENT AT TIME OF PT LEAVING TO PERSONALIZED LIVING MANAGER NURSE.
--- NOTE | 2025-08-12 18:19 | NUR ---
UPDATE TR BAND RECOVERED AT 1810. RIGHT RADIAL SITE C/D/I, WITH NO HEMATOMA OR TENDERNESS NOTED. TEGADERM IN PLACE.
--- NOTE | 2025-08-12 19:30 | NUR ---
SHIFT SUMMARY PT A/OX4 AND COOPERATIVE OF CARE. PT ABLE TO EXPRESS NEEDS AND CALOLED APPROPIATE. PT VSS THROUGHOUT SHIFT WITH O2 SATS IN THE 90'S ON RA. NO RPEORT OF CHEST PAIN/PRESSURE OR ARM PAIN, PT STATES THE ARM PAIN IS ONLY WITH EXERTION. NO RPEORT POF SOB/DYSPNEA THROUGHOUT SHIFT. PT HAD ANGIO TODAY, NO INTERVENTIONS, MULTI VESSEL DX. PLAN FOR CABG AT [facility] ACCEPTED AWAITING BED. FAMILY PRESENT FOR UPDATE BY AIR BRUSH DECORATOR. PT WITH RIGHT RADIAL SITE, RECOVERED, SITE C/D/I. PT WITH RIGHT GROIN SITE, NO HEMATOMA, BLEEDING, OR TENDERNESS NOTED.
[2025-08-13 00:12] VITALS: BP 121/70
[2025-08-13] MEDS ORDERED: Dose Adjust by Pharmacy XX STA ×2 (01:54→09:25)
[2025-08-13 04:35] VITALS: BP 112/73
--- NOTE | 2025-08-13 06:01 | NUR ---
PT VISITED W FAMILY FOR START OF SHIFT. PT ASSISTED TO RR TO VOID AND ATTEMPT BM W CARE TO NOT STRAIN R GROIN. R RADIAL SITE AND R GROIN ASSESSED THROUGH THE NITE AT SITES OF BUSINESS INFORMATION ANALYST INSERTION AND NO DRAINAGE, BRUISING OR PAIN AT SITES. HEPARIN RATE INCREASED PER PHARMACY RECS POST APTT LEVELS. NEXT APTT LEVEL TO BE DRAWN AT 0800. PT DENIED ANY ISCHEMIC CHEST PAIN THIS SHIFT, TOLERATED DINNER WITHOUT NAUSEA. PAGED FOR MELATONIN FOR SLEEP AND 3 MG MELATONIN Q NIGHTTIME IS ON JAN NOW. PT PENDING COBRA TRANSFER TO GRUVER FOR FURTHER CARDIAC MANAGEMENT.
--- NOTE | 2025-08-13 06:04 | NUR ---
END OF SHIFT REPORT PT RECQUIRING 1:1 SITTER FOR IMPULSIVE DESIRES. PT GOES FROM SITTING IN CHAIR THEN WANTING TO GO TO BED. PT HAS CORDS AND SOME CONFUSION BUT REDIRECTABLE WITHOUT AGGRESSION. NO USE OF RESTRAINTS NEEEDED OR PRN HALDOL OR ZYPREXA. VSS, CONTINUING ACCUCK Q 6, CARDIAC MONITORING. PT ABLE TO TAKE ALL MEDS ONE BY ONE W APPLESAUCE. NO ASPIRATION NOTED. PT DENIED PAIN THIS SHIFT. IV ABX AT 0600 FOR RED CELLULITIS OF BLE.
[2025-08-13 07:53] VITALS: BP 134/71
[2025-08-13 08:09] LABS: BASOPHILS ABSOLUTE AUTO 0.01 K/mm3 (0.00-0.23); BASOPHILS PERCENT AUTO 0 % (0-2); EOSINOPHILS ABSOLUTE AUTO 0.04 K/mm3 (0.00-0.68); EOSINOPHILS PERCENT AUTO 1 % (0-6); Hematocrit 36.8 % (37.0-53.0); Hemoglobin 11.8 g/dL (13.5-17.5); IMMATURE GRAN ABSOLUTE AUTO 0.01 K/mm3 (0.00-0.10); IMMATURE GRAN PERCENT AUTO 0 % (0-1); LYMPHOCYTES ABSOLUTE AUTO 1.09 K/mm3 (0.84-5.20); LYMPHOCYTES PERCENT AUTO 26 % (21-46); MONOCYTES ABSOLUTE AUTO 0.96 K/mm3 (0.16-1.47); MONOCYTES PERCENT AUTO 23 % (4-13); Mean Corpuscular HGB Conc 32.1 g/dL (31.5-36.5); Mean Corpuscular Volume 91 fL (80-100); NEUTROPHILS ABSOLUTE AUTO 2.09 K/mm3 (1.96-9.15); NEUTROPHILS PERCENT AUTO 50 % (41-73); NRBC ABSOLUTE 0.00 K/mm3 (0.00-0.02); NRBC Auto 0.0 /100 WBC (0.0-0.2); Platelet Count 175 K/mm3 (150-400); RDW Coefficient Variation 13.8 % (11.7-14.2); RDW Standard Deviation 46.1 fL (35.1-46.3)
[2025-08-13 08:32] LABS: Alanine Aminotransfer (ALT/SGP 23.0 U/L (12-78); Albumin, Blood 3.1 g/dL (3.4-5.0); Albumin/Globulin Ratio 1.0 (0.8-1.8); Anion Gap 9.0 mmol/L (3-11); Aspartate Aminotrans (AST/SGOT 17.0 U/L (12-37); Bilirubin, Total 0.8 mg/dL (0.1-1.0); Blood Urea Nitrogen 10.0 mg/dL (8-24); CO2, Blood 25.0 mmol/L (21-32); Calcium, Blood 8.0 mg/dL (8.5-10.1); Chloride, Blood 109.0 mmol/L (98-108); Creatinine, Blood 1.26 mg/dL (0.60-1.20); Globulin, Blood 3.0 g/dL (2.2-4.0); Glucose, Blood 97.0 mg/dL (70-99); Potassium, Blood 3.7 mmol/L (3.5-5.5); Sodium, Blood 139.0 mmol/L (136-145); Total Protein, Blood 6.1 g/dL (6.4-8.2)
[2025-08-13 12:40] VITALS: BP 123/69
[2025-08-13] MEDS ORDERED: ASPI81CH PO (14:06)
[2025-08-13] MEDS ORDERED: ATOR80 PO (14:06)
[2025-08-13] MEDS ORDERED: LOSA25 PO (14:07)
[2025-08-13 14:45] VITALS: BP 128/71
--- NOTE | 2025-08-13 15:26 | NUR ---
SHIFT SUMMARY/ DISCHARGED NOTE: PT A&OX4. FOLLOWS COMMANDS AND MAKES NEEDS KNOWN TO STAFF. PT WAS INDEPENDENT IN HIS ROOM TODAY. DENIED ANY COMPLAINTS OF CP, PRESSURE, TIGHTNESS OR SOB. VSS. PLAN TO FOLLOW UP OUTPATIENT WITH CARDIOLOGY FOR CABG ONCE BED IS AVAILABLE. NO SIGNIFICANT EVENTS HAPPENED DURING SHIFT. PT DISCHARGED TO HOME IN NO ACUTE STRESS AT THIS TIME. THIS RN WENT OVER WRITTEN AND VERBAL DC INSTURUSTIONS WITH PT AND . IV WAS FOUND TO BE INFILTRATED UPON REMOVAL. PROVIDER NOTIFIED AND PT GIVEN INSTRUCTIONS ON WHEN TO TAKE ELIQUIS. CATH INTACT. BELONGINGS COLLECTED AND TAKEN WITH PT WHO WAS WHEELED OUT BY LUBRICATION SERVICER.
== END 2025-08-13 15:15 | disposition home or self-care (01) | DRG 287 ==
LOC: ER 08:29 → PCU 08:30 → ERHOLD 08:30 → ER 11:24 → ERHOLD 11:24 → PCU 15:04
PROVIDERS: Internal Medicine Cardiovascular Disease; Physician Assistant; ADMIT Hospitalist
PROC: 4A023N7 Measurement of Cardiac Sampling and Pressure, Left Heart, Percutaneous Approach (ICD-10-PCS; principal; 2025-08-12)
PROC: B2111ZZ Fluoroscopy of Multiple Coronary Arteries using Low Osmolar Contrast (ICD-10-PCS; 2025-08-12)
PROC: B41F1ZZ Fluoroscopy of Right Lower Extremity Arteries using Low Osmolar Contrast (ICD-10-PCS; 2025-08-12)
PROC: B34HZZZ Ultrasonography of Right Upper Extremity Arteries (ICD-10-PCS; 2025-08-12)
DX: I25.118 Atherosclerotic heart disease of native coronary artery with other forms of angina pectoris (principal); C85.1A Unspecified B-cell lymphoma, in remission; I70.229 Atherosclerosis of native arteries of extremities with rest pain, unspecified extremity; N40.0 Benign prostatic hyperplasia without lower urinary tract symptoms; M25.80 Other specified joint disorders, unspecified joint; N18.30 Chronic kidney disease, stage 3 unspecified; I12.9 Hypertensive chronic kidney disease with stage 1 through stage 4 chronic kidney disease, or unspecified chronic kidney disease; E78.5 Hyperlipidemia, unspecified; D50.9 Iron deficiency anemia, unspecified; Z86.718 Personal history of other venous thrombosis and embolism; Z79.01 Long term (current) use of anticoagulants; Z79.899 Other long term (current) drug therapy; Z90.89 Acquired absence of other organs; Z98.890 Other specified postprocedural states
CPT/HCPCS: 36415; 71046; 76937; 78452; 80048; 80053; 80061; 83036; 83690; 83735; 84100; 84443; 84484; 85025; 85610; 85730; 93005; 93010; 93017; 93308; 93458; 94762; 96365; 96366; 96376; 99152; 99153; 99284-25; A9270; A9500; C1760; C1769; C1887; C1894; G0378; J0706; J1644; J2250; J2785; J3010; J3475; J7030; J7050; Q9967

== ENCOUNTER 2025-08-22 16:06 | Observation (INO) | payer OTHER ==
[~2025-08-22] VITALS: Ht 177.8 cm; Wt 95.5 kg
[~2025-08-22 16:06] MED LIST changes: +ASPI81CH PO; +ATOR80 PO; +LOSA25 PO; +[UNRECOGNIZED DRUG - OTHER]; +[UNRECOGNIZED DRUG - OTHER] PO
[2025-08-22 16:48] LABS: BASOPHILS ABSOLUTE AUTO 0.01 K/mm3 (0.00-0.23); BASOPHILS PERCENT AUTO 0 % (0-2); EOSINOPHILS ABSOLUTE AUTO 0.05 K/mm3 (0.00-0.68); EOSINOPHILS PERCENT AUTO 1 % (0-6); Hematocrit 41.8 % (37.0-53.0); Hemoglobin 14.0 g/dL (13.5-17.5); IMMATURE GRAN ABSOLUTE AUTO 0.04 K/mm3 (0.00-0.10); IMMATURE GRAN PERCENT AUTO 1 % (0-1); LYMPHOCYTES ABSOLUTE AUTO 1.22 K/mm3 (0.84-5.20); LYMPHOCYTES PERCENT AUTO 21 % (21-46); MONOCYTES ABSOLUTE AUTO 0.83 K/mm3 (0.16-1.47); MONOCYTES PERCENT AUTO 14 % (4-13); Mean Corpuscular HGB Conc 33.5 g/dL (31.5-36.5); Mean Corpuscular Volume 89 fL (80-100); NEUTROPHILS ABSOLUTE AUTO 3.80 K/mm3 (1.96-9.15); NEUTROPHILS PERCENT AUTO 64 % (41-73); NRBC ABSOLUTE 0.00 K/mm3 (0.00-0.02); NRBC Auto 0.0 /100 WBC (0.0-0.2); Platelet Count 239 K/mm3 (150-400); RDW Coefficient Variation 13.6 % (11.7-14.2); RDW Standard Deviation 43.8 fL (35.1-46.3)
[2025-08-22 17:14] LABS: Alanine Aminotransfer (ALT/SGP 28.0 U/L (12-78); Albumin, Blood 3.7 g/dL (3.4-5.0); Albumin/Globulin Ratio 1.0 (0.8-1.8); Anion Gap 8.0 mmol/L (3-11); Aspartate Aminotrans (AST/SGOT 27.0 U/L (12-37); Bilirubin, Total 0.9 mg/dL (0.1-1.0); Blood Urea Nitrogen 11.0 mg/dL (8-24); CO2, Blood 26.0 mmol/L (21-32); Calcium, Blood 8.8 mg/dL (8.5-10.1); Chloride, Blood 105.0 mmol/L (98-108); Creatinine, Blood 1.24 mg/dL (0.60-1.20); Globulin, Blood 3.7 g/dL (2.2-4.0); Glucose, Blood 141.0 mg/dL (70-99); Potassium, Blood 3.9 mmol/L (3.5-5.5); Sodium, Blood 135.0 mmol/L (136-145); Total Protein, Blood 7.4 g/dL (6.4-8.2)
[2025-08-22] MEDS ORDERED: NS 1,000 ML IV SCH ×2 (17:45→20:45)
[2025-08-22 18:08] LABS: Magnesium, Blood 2.2 mg/dL (1.6-2.4); Thyroid Stimulating Hormone 1.85 uIU/mL (0.360-4.800)
[2025-08-22 18:59] LABS: Source, Urine Voided
[2025-08-22 19:04] LABS: Bilirubin, Urine Neg (Neg); Glucose Qualitative, Urine Neg (Neg); Ketones, Urine Neg (Neg); Leukocyte Esterase, Urine Neg (Neg); Protein, Urine Neg (Neg); Specific Gravity, Urine 1.010 (1.003-1.022); Urobilinogen, Urine NORM (Normal)
[2025-08-22 19:11] LABS: Color, Urine Pale Yellow (P-Yellow)
[2025-08-22 19:12] LABS: White Blood Cells, Urine 0-2 /hpf (0-5)
[2025-08-22] MEDS ORDERED: Ondansetron HCl 2 MG / ML 2ML Vial IV PRN (20:45)
[2025-08-22] MEDS ORDERED: FLU VACC TS2025(65UP)/MF59C/PF 45 MCG/0.5 ML SYRINGE IM SCH (20:55)
--- NOTE | 2025-08-22 22:00 | NUR ---
[facility] Received report from Carlos Hollis, SUPPLY CHAIN SYSTEMS MANAGER. Patient arrived to unit around 2200. AOx4, reliable historian. Transferred self from [place] to bed. Denies any chest pain, sob, nausea. Tele placed. Meds whole w/ water. NS started at 100 mLs/hr. Settled to room. Call light in reach.
[2025-08-22 22:05] VITALS: BP 138/75
[2025-08-22] MEDS ORDERED: ACYCLOVIR400 MG PO (22:12)
[2025-08-22 22:19] VITALS: BP 133/75
[2025-08-22 22:20] VITALS: BP 113/71
[2025-08-22] MEDS ORDERED: CALCIUM PO (22:22)
[2025-08-23 00:29] VITALS: BP 105/54
[2025-08-23 04:19] VITALS: BP 103/64
--- NOTE | 2025-08-23 05:19 | NUR ---
Shift Summary AOx4. Patient converted to Afib 80-110s. The EKG 47 minutes after arriving to floor. Prior to that, patitent was NSR in the ER. Patient did not feel a thing nor was he symptomatic, did verbalized never been diagnosed with afib and that this is a new finding. Made Dr. Jhoan Greenberg aware of conversion and that this is the first Patient has poor sleep hygiene d/t enlarged prostate and small bladder requiring frequent trips to the restroom. 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 NS @ 100 continuous. 1p SBA to bathroom, continent, difficulty starting stream d/t enlarged prostate.
[2025-08-23 07:27] VITALS: BP 103/63
[2025-08-23 10:18] VITALS: BP 107/59
[2025-08-23 10:20] VITALS: BP 106/65
[2025-08-23 10:22] VITALS: BP 108/57
--- NOTE | 2025-08-23 10:55 | NUR ---
NOTE: ORTHOSTATIC VITAL SIGNS RELAYED TO THE GLUE CLAMP OPERATOR, COLLEEN (POSSIBLY MISSPELLED). HE SAID HE IS NEGATIVE FOR ORTHOSTATIC.
--- NOTE | 2025-08-23 13:44 | NUR ---
DISCHARGE NOTE PT DISCHARGED TO HOME, PICKED UP BY HIS . IV REMOVED. TELE RETURNED. DISCHARGE INFORMATION AND EDUCATION PROVIDED AND REVIEWED WITH THE PT. NO NEW MEDICATIONS. PERSONAL BELONGINGS RETURNED.
== END 2025-08-23 13:30 | disposition home or self-care (01) ==
LOC: ER 16:06 → MEDS 16:07
PROVIDERS: Emergency Medicine; Student in an Organized Health Care Education/Training Program; ADMIT Internal Medicine
DX: R55 Syncope and collapse (principal); C85.9A Non-Hodgkin lymphoma, unspecified, in remission; I73.9 Peripheral vascular disease, unspecified; I12.9 Hypertensive chronic kidney disease with stage 1 through stage 4 chronic kidney disease, or unspecified chronic kidney disease; N18.30 Chronic kidney disease, stage 3 unspecified; N40.0 Benign prostatic hyperplasia without lower urinary tract symptoms; Z79.899 Other long term (current) drug therapy
CPT/HCPCS: 36415; 70450; 71046; 80053; 81001; 83735; 84439; 84443; 84484; 85025; 93005; 93010; 93308; 93321; 96360; 96361; 99285-25; A9270; G0378; J7030